=== PATIENT | male | born 1960 | race Caucasian/White ===

== ENCOUNTER 2020-12-27 23:17 | Emergency (ER) | payer OTHER ==
[~2020-12-27] VITALS: Ht 167.6 cm; Wt 71.0 kg
[2020-12-28] MEDS ORDERED: SODIUM CHLORIDE 0.9% 1,000 ML IV ONE
[2020-12-28 00:10] LABS: BASOPHILS % 1.4 % (0.0-2.0); EOSINOPHILS % 1.8 % (0.0-5.0); HEMATOCRIT. 28.4 % (42.0-52.0); HEMOGLOBIN. 10.4 g/dL (14.0-18.0); LYMPHOCYTES % 26.3 % (20.0-50.0); MEAN CORPUSCULAR HEMOGLOBIN 33.4 pg (28.0-32.0); MEAN CORPUSCULAR VOLUME 91.5 fL (80.0-94.0); MEAN PLATELET VOLUME 7.5 fl (7.4-10.4); MONOCYTES % 10.7 % (2.0-8.0); NEUTROPHILS % 59.8 % (40.0-76.0); PLATELET 217 x1000/uL (130-400); RED CELL DISTRIBUTION WIDTH 16.4 % (11.6-14.6)
[2020-12-28 00:16] LABS: CHLORIDE 102 mEq/L (98-107)
[2020-12-28] MEDS ORDERED: MIDODRINE HCL 5MG TABLET PO ONE (02:00)
[2020-12-28 10:44] VITALS: BP 121/63
== END 2020-12-28 10:52 | disposition home or self-care (01) ==
LOC: ER 23:17 → CANBEDREQ 12-28 07:14 → ER 12-28 10:52
DX: I95.9 Hypotension, unspecified (principal); R55 Syncope and collapse; F41.9 Anxiety disorder, unspecified; I10 Essential (primary) hypertension; E78.00 Pure hypercholesterolemia, unspecified; E11.9 Type 2 diabetes mellitus without complications
CPT/HCPCS: 36415; 71045; 80053; 83880; 84484; 85025; 93005; 99285; J7030

== ENCOUNTER 2022-06-07 19:12 | Emergency (ER) | payer OTHER ==
[~2022-06-07] VITALS: Ht 182.9 cm; Wt 91.0 kg
[2022-06-07] MEDS ORDERED: ONDANSETRON HCL 4MG/2ML INJ IV STA (20:39)
[2022-06-07] MEDS ORDERED: SODIUM CHLORIDE 0.9% 1,000 ML IV ONE (20:45)
[2022-06-07 22:25] VITALS: BP 134/79
[2022-06-07 22:28] LABS: CHLORIDE 105 mEq/L (98-107)
[2022-06-07 22:37] LABS: HEMATOCRIT. 28.9 % (42.0-52.0); HEMOGLOBIN. 9.7 g/dL (14.0-18.0); MEAN CORPUSCULAR HEMOGLOBIN 30.7 pg (28.0-32.0); MEAN CORPUSCULAR VOLUME 91.1 fL (80.0-94.0); PLATELET 212 x1000/uL (130-400); RED BLOOD CELL COUNT 3.18 mill/uL (4.7-6.1); RED CELL DISTRIBUTION WIDTH 15.8 % (11.6-14.6)
[2022-06-07] MEDS ORDERED: ONDA4TAB11 PO (23:04)
[2022-06-07 23:17] LABS: PLATELET ESTIMATE NORMAL
== END 2022-06-07 23:58 | disposition left against medical advice (07) ==
LOC: ER 19:12
DX: R11.2 Nausea with vomiting, unspecified (principal); N17.9 Acute kidney failure, unspecified; F41.9 Anxiety disorder, unspecified; E11.9 Type 2 diabetes mellitus without complications; E78.00 Pure hypercholesterolemia, unspecified; I10 Essential (primary) hypertension
CPT/HCPCS: 36415; 80053; 83690; 85025; 93005; 96361; 96374; 99284; J2405; J7030